=== PATIENT | male | born 1975 | race African-American/Black ===

== ENCOUNTER 2021-01-22 20:18 | Emergency (ER) | payer OTHER ==
[~2021-01-22] VITALS: Ht 180.3 cm; Wt 141.5 kg
[2021-01-22] MEDS ORDERED: KETOROLAC TROMETHAMINE 30 MG/ML VIAL IV STA (20:30)
[2021-01-22] MEDS ORDERED: SODIUM CHLORIDE 0.9% 1000ML 1,000 ML IV STA (20:30)
[2021-01-22 21:02] LABS: BASOPHILS % 0.2 % (0.0-1.0); HEMATOCRIT 36.8 % (38.2-49.6); HEMOGLOBIN 12.2 g/dL (14.0-18.0); LYMPHOCYTES # (AUTO) 1.1 (1.0-3.2); MEAN CORPUSCULAR HEMOGLOBIN 22.1 pg (28-32); MEAN CORPUSCULAR HGB CONC 33.2 g/dL (31-35); MEAN CORPUSCULAR VOLUME 66.5 fL (81-99); MONOCYTES # (AUTO) 0.1 (0.2-0.8); MONOCYTES % 0.7 % (4.4-11.3); NEUTROPHILS # (AUTO) 8.2 (2.1-6.9); NEUTROPHILS % 86.6 % (38.7-80.0); PLATELET COUNT 279 x10e3/uL (140-360); RED BLOOD COUNT 5.53 x10e6/uL (4.3-5.7)
[2021-01-22 21:22] LABS: ALANINE AMINOTRANSFERASE 17 IU/L (0-55); ALBUMIN 4.4 g/dL (3.5-5.0); ALBUMIN/GLOBULIN RATIO 1.1 (0.8-2.0); ALKALINE PHOSPHATASE 84 IU/L (40-150); ANION GAP 15.9 mmol/L (8-16); BLOOD UREA NITROGEN 8 mg/dL (7-26); CALCIUM 9.3 mg/dL (8.4-10.2); CARBON DIOXIDE 23 mmol/L (22-29); CHLORIDE 102 mmol/L (98-107); CREATINE KINASE 44 IU/L (30-200); GLUCOSE 258 mg/dL (74-118); POTASSIUM 3.9 mmol/L (3.5-5.1); SODIUM 137 mmol/L (136-145)
[2021-01-22] MEDS ORDERED: FENTANYL CITRATE/PF 100MCG/2 ML INJ ONE (21:42)
[2021-01-22 21:45] LABS: BUN/CREATININE RATIO 10 (6-25); CREATININE, SERUM 0.83 mg/dL (0.72-1.25); EST GLOMERULAR FILTRATION RATE 101 ML/MIN (60-)
[2021-01-22] MEDS ORDERED: FENTANYL CITRATE/PF 100MCG/2 ML INJ IV ONE (21:45)
[2021-01-22 21:48] LABS: HYPOCHROMASIA SLIGHT; PLATELET ESTIMATE ADEQUATE; PLATELET MORPHOLOGY COMMENT NORMAL
[2021-01-22 21:49] LABS: ANISOCYTOSIS SLIGHT; MICROCYTOSIS SLIGHT; RBC MORPHOLOGY COMMENT NORMAL
== END 2021-01-22 22:29 | disposition home or self-care (01) ==
LOC: ER 20:32
DX: D57.00 Hb-SS disease with crisis, unspecified (principal); Z98.84 Bariatric surgery status
CPT/HCPCS: 36415; 71045; 80053; 82550; 82553; 84484; 85025; 85045; 93005; 99283; J1885; J3010; J7030